=== PATIENT | female | born 1965 | race Caucasian/White ===

== ENCOUNTER 2020-04-06 12:50 | Emergency (ER) | payer BC, SELFPAY ==
[2020-04-06 12:50] VITALS: BP 139/77; PULSE 53; RESP 14; TEMP 37.3; O2SAT 96; BMI 33.0
[2020-04-06 13:07] LABS: Color,Urine Dark Yellow (Yellow)
[2020-04-06 13:08] LABS: Apearance,Urine Clear (Clear); Bilirubin,Urine 1+ (Negative); Blood, Urine Trace (Negative); Glucose,Urine (UA) 100 (Negative); Ketones,Urine TRACE (Negative); Protein,Urine 1+ (Negative); Specific Gravity, Urine >= 1.030 (1.005-1.030); UTC Leukocyte Esterase,Urine 1+ (Negative); UTC Nitrate,Urine Negative (Negative); Urobilinogen,Urine 0.2 EU/dl (0.2)
--- NOTE | 2020-04-06 13:08 | HMH.EDUTC ---
[facility] Disposition Condition on Discharge: Good <Maksim Pena - Last Filed: 04/06/20 13:08> <Elieser Zhao - Last Filed: 04/06/20 15:42> Clinical Impression: Abdominal pain Qualifiers: Abdominal location: left upper quadrant Qualified Code(s): R10.12 - Left upper quadrant pain Disposition: Still a Patient Referrals: Tommy Gil MD [Primary Care Provider] - Medical Decision Making - Kali Inquiry Pt receiving controlled substance: No <Maksim Pena - Last Filed: 04/06/20 13:08> - Lab Data Result diagrams: 04/06/20 13:15 04/06/20 13:15 <Elieser Zhao - Last Filed: 04/06/20 15:42> Vital Signs: 04/06/20 12:50 04/06/20 13:16 04/06/20 13:50 Temperature 99.1 F 98.7 F Temperature Source Oral Oral Pulse Rate [Right Brachial] 53 L 67 51 L Respiratory Rate 14 16 18 Blood Pressure [Right Arm] 139/77 133/72 126/76 Blood Pressure Mean [Right Arm] 97 92 92 Blood Pressure Source [Right Arm] Automatic Cuff Automatic Cuff Blood Pressure Position [Right Arm] Sitting Sitting Sitting 02 Sat by Pulse Oximetry 96 98 98 Oxygen Delivery Method Room Air Room Air Room Air 04/06/20 14:46 Temperature Temperature Source Pulse Rate [Right Brachial] 51 L Respiratory Rate 18 Blood Pressure [Right Arm] 133/85 Blood Pressure Mean [Right Arm] 101 Blood Pressure Source [Right Arm] Blood Pressure Position [Right Arm] 02 Sat by Pulse Oximetry 98 Oxygen Delivery Method - Lab Data Lab Results 04/06/20 13:01: Urine Color Dark yellow, Urine Appearance Clear, Urine pH 5.0, Ur Specific [place] >= 1.030, Urine Protein 1+, Urine Glucose (UA) 100, Urine Ketones Trace, Urine Blood Trace, Urine Nitrate Negative, Urine Bilirubin 1+ A, Urine Urobilinogen 0.2, Ur Leukocyte Esterase 1+ A 04/06/20 13:15: WBC 9.3, RBC 5.21, Hgb 15.5, Hct 47.0, MCV 90.3, MCH 29.8, MCHC 33.1, RDW 13.7, Plt Count 194, MPV 7.9, Neut % (Auto) 79.9, Lymph % (Auto) 14.0, [place] % (Auto) 4.0, Eos % (Auto) 1.5, Baso % (Auto) 0.6, Neut # (Auto) 7.5, Lymph # (Auto) 1.3, [place] # (Auto) 0.4, Eos # (Auto) 0.1, Baso # (Auto) 0.1 04/06/20 13:15: Sodium 142, Potassium 3.9, Chloride 107, Carbon Dioxide 28, Anion Gap 10.9, BUN 11, Creatinine 0.80, Estimated Creat Clear 126, Estimated GFR 75, Est GFR ( Amer) 91, Glucose 126 H, Calcium 10.1, Total Bilirubin 0.6, AST 61 H, ALT 62, Alkaline Phosphatase 91, C-Reactive Protein 6.3 H, Total Protein 7.6, Albumin 4.6, Globulin 3.0, Albumin/Globulin Ratio 1.5 04/06/20 13:15: ESR 10 04/06/20 13:15: Amylase 59, Lipase 71 Orders (Tests/Meds): ED MEDICATIONS Discontinued Medications Generic Name Dose Route Start Last Admin Trade Name Freq PRN Reason Stop Dose Admin Iopamidol 75 ml 04/06/20 14:06 04/06/20 14:07 Iopamidol-370 (76%);100ml Bottle IV 04/06/20 14:07 75 ml ONCE ONE Administration Sodium Chloride 10 ml 04/06/20 14:06 04/06/20 14:07 Sodium Chloride 0.9% 10ml Syr (Rad Only) IV 04/06/20 14:07 10 ml ONCE ONE Administration ORDERS Category Date Time Status CT abdomen pelvis w con Stat Cat Scan 04/06/20 13:28 Taken XR chest portable Stat Exams 04/06/20 13:27 Taken Lactic Acid Stat Lab 04/06/20 15:10 Received [facility] HPI - General Mode of Arrival: Ambulatory Source of Information: Patient, Spouse Limitations: No Limitations Description of Symptoms (Recalled from Triage Doc. by RN): PATIENT C/O LUQ PAIN THAT BEGAN LAST NIGHT. EMESIS X 1 THIS MORNING. SHE STATES THE PAIN IS BETTER WHEN SHE STANDS AND DOES NOT RADIATE. DENIES FEVER. RATES PAIN 5/10 HEENT Symptoms (Recalled from RN notes): No Resp Symptoms (Recalled from RN notes): No Skin Symptoms (Recalled from RN notes): No MS Symptoms (Recalled from RN notes): No Functional Status (Recalled from RN notes): WNL - History of Present Illness Provider Complaint: 54 yr old female presents for left upper quad pain with vomiting that started this am when she got out of bed. pt states pain is worse with sitting. pt s
--- NOTE | 2020-04-06 13:13 | PC.NURSE ---
PATIENT SENT TO ER PER YUSRA MENARD APRN FOR FURTHER EVALUATION FOR ABDOMINAL PAIN. REPORT GIVEN TO Aarti BOWLING RN
[2020-04-06 13:16] VITALS: BP 133/72; PULSE 67; RESP 16; TEMP 37.1; O2SAT 98; BMI 34.0
--- NOTE | 2020-04-06 13:27 | XR_ITS ---
PROCEDURE: XR CHEST PORTABLE CLINICAL HISTORY: PAIN Left lower chest pain COMPARISON: No exams were available for comparison FINDINGS: The cardiomediastinal silhouette and pulmonary vascularity are within normal limits. The lungs are clear without infiltrates, suspicious nodules, or pleural effusions. No acute bony abnormalities. IMPRESSION: No acute findings. Dictated by: Abilio Kuhn MD 04/07/2020 07:35 Abilio Kuhn MD in [place] 04/07/2020 07:35
--- NOTE | 2020-04-06 13:28 | CT_ITS ---
PROCEDURE: CT ABDOMEN PELVIS W CON CLINICAL INDICATION: ABD PAIN Left upper quadrant abdominal pain with vomiting COMPARISON: No exams were available for comparison TECHNIQUE: IV Contrast: 75ML Isovue 370 Oral Contrast None Axial images obtained with sagittal and coronal reformats. All CT scans at the facility use one or more dose reduction, viz: automated exposure control, ma/kV adjustment per patient size (including targeted exams where dose is matched to indication, i.e. head), or iterative reconstruction technique. FINDINGS: LOWER THORAX: No acute finding ABDOMEN & PELVIS: Mild fatty liver infiltration. Cholecystectomy. The spleen, adrenal glands, pancreas and kidneys have an unremarkable appearance. No intestinal obstruction or free air. There is a supraumbilical hernia. This is slightly eccentric toward the right with hernia defect measuring 2.9 cm. Hernia does contain omentum and fat with some mild stranding of the fat. Cannot exclude incarceration. A small umbilical hernia is also noted. No evidence of appendicitis. There is colonic diverticulosis but no evidence of diverticulitis. No acute bony findings. IMPRESSION: Supraumbilical hernia containing omental tissue and fat with some minimal stranding of the omental tissue within the hernia sac which could be seen with incarceration. Small umbilical hernia. Otherwise negative Dictated by: Abilio Kuhn MD 04/07/2020 09:33 Abilio Kuhn MD in [place] 04/07/2020 09:33
[2020-04-06 13:34] LABS: Basophils # 0.1 K/mm3 (0-0.2); Basophils % 0.6 % (0.1-2.0); Eosinophils # 0.1 K/mm3 (0.0-0.4); Eosinophils % 1.5 % (0.1-12.0); Hemoglobin 15.5 g/dL (12.2-16.2); Lymphocytes # 1.3 K/mm3 (0.7-4.5); Mean Corpuscular HGB Conc 33.1 g/dL (31.8-35.4); Mean Corpuscular Hemoglobin 29.8 pg (27.0-31.2); Mean Corpuscular Volume 90.3 fl (81-99); Mean Platelet Volume 7.9 fl (7.4-10.4); Monocytes # 0.4 K/mm3 (0.1-1.0); Neutrophils # 7.5 K/mm3 (1.8-7.8); Neutrophils % 79.9 % (37.0-80.0); Platelet Count 194 K/mm3 (142-424); Red Blood Count 5.21 M/mm3 (4.20-5.40); Red Cell Distribution Width 13.7 % (11.5-17.5); White Blood Count 9.3 K/mm3 (4.8-10.8)
[2020-04-06 13:37] LABS: Alanine Aminotransferase 62 U/L (12-78); Albumin Level 4.6 g/dl (3.5-5.0); Albumin/Globulin Ratio 1.5 (1.1-1.8); Alkaline Phosphatase 91 U/L (38-126); Anion Gap 10.9 mEq/L (5-15); Aspartate Amino Transferase 61 U/L (14-36); Bilirubin,Total 0.6 mg/dl (0.2-1.3); Blood Urea Nitrogen 11 mg/dl (7-17); Calcium 10.1 mg/dl (8.4-10.2); Carbon Dioxide 28 mmol/L (22.0-30.0); Chloride 107 mmol/L (98-107); Creatinine Clearance Estimated 126 mL/min (50-200); Estimated Glomerular Filt Rate 75 ml/min (>60); GFR (African American) 91 ML/MIN (>60); Glucose 126 mg/dl (74-100); Potassium 3.9 mmoL/L (3.5-5.1); Sodium 142 mmol/L (136-145); Total Protein,Serum 7.6 g/dl (6.3-8.2)
[2020-04-06 13:42] LABS: C-Reactive Protein 6.3 mg/L (0-4)
--- NOTE | 2020-04-06 13:43 | ECG_ITS ---
APPROVED REPORT Exam: Resting ECG HR:51 bpm ECG Measurements Heart Rate 51 AXES OR 150 P 34 QRSd 98 QRS -6 QT 466 T 28 QTc 429 Conclusion Sinus bradycardia Nonspecific ST abnormality Abnormal ECG Electronically signed by : Tommy Mehta, 04/08/2020 06:45:43
[2020-04-06 13:44] LABS: Amylase 59 U/L (30-110); Lipase 71 U/L (23-300)
[2020-04-06 13:50] VITALS: BP 126/76; PULSE 51; RESP 18; O2SAT 98
--- NOTE | 2020-04-06 14:01 | PC.NURSE ---
PT STILL IN CT
[2020-04-06 14:03] LABS: Erythrocyte Sedimentation Rate 10 mm/hr (0-30)
[2020-04-06 14:46] VITALS: BP 133/85; PULSE 51; RESP 18; O2SAT 98
--- NOTE | 2020-04-06 14:47 | PC.NURSE ---
Dr Zhao spoke with JEREMIAH
--- NOTE | 2020-04-06 14:52 | PC.NURSE ---
LAB AWARE OF LACTIC
--- NOTE | 2020-04-06 16:03 | HMH.EDNVD ---
ED Disposition Clinical Impression: Supraumbilical hernia without gangrene and without obstruction Abdominal pain Qualifiers: Abdominal location: left upper quadrant Qualified Code(s): R10.12 - Left upper quadrant pain Disposition: Home, Self-Care Condition on Discharge: Good Instructions: DI for Acute Abdominal Pain Additional Instructions: recheck if any problems and call dr dyson and pcp for follow up Prescriptions: Ketorolac Tromethamine [Toradol 10mg tablet] 10 mg PO Q6H 3 Days #10 tab Transmission Status: Pending to [facility] Referrals: Tommy Gil MD [Primary Care Provider] - Carter Dyson MD [Staff Physician] - - Critical Care Critical Care Time: No Attestation: On 04/06/20, the high probability of a clinically significant, sudden or life threatening deterioration of the following system(s) required my full and direct attention, intervention and personal management. The time I documented below is in addition to time spent performing reported procedures but includes the following listed in this critical care notation. Medical Decision Making - Medical Records Medical records reviewed: Yes: I reviewed the patient's medical records. - Kali Inquiry Pt receiving controlled substance: No Vital Signs: 04/06/20 12:50 04/06/20 13:16 04/06/20 13:50 Temperature 99.1 F 98.7 F Temperature Source Oral Oral Pulse Rate [Right Brachial] 53 L 67 51 L Respiratory Rate 14 16 18 Blood Pressure [Right Arm] 139/77 133/72 126/76 Blood Pressure Mean [Right Arm] 97 92 92 Blood Pressure Source [Right Arm] Automatic Cuff Automatic Cuff Blood Pressure Position [Right Arm] Sitting Sitting Sitting 02 Sat by Pulse Oximetry 96 98 98 Oxygen Delivery Method Room Air Room Air Room Air 04/06/20 14:46 Temperature Temperature Source Pulse Rate [Right Brachial] 51 L Respiratory Rate 18 Blood Pressure [Right Arm] 133/85 Blood Pressure Mean [Right Arm] 101 Blood Pressure Source [Right Arm] Blood Pressure Position [Right Arm] 02 Sat by Pulse Oximetry 98 Oxygen Delivery Method - Lab Data Lab results reviewed: Yes: I reviewed the patient's lab results. Lab Results 04/06/20 13:01: Urine Color Dark yellow, Urine Appearance Clear, Urine pH 5.0, Ur Specific [place] >= 1.030, Urine Protein 1+, Urine Glucose (UA) 100, Urine Ketones Trace, Urine Blood Trace, Urine Nitrate Negative, Urine Bilirubin 1+ A, Urine Urobilinogen 0.2, Ur Leukocyte Esterase 1+ A 04/06/20 13:15: WBC 9.3, RBC 5.21, Hgb 15.5, Hct 47.0, MCV 90.3, MCH 29.8, MCHC 33.1, RDW 13.7, Plt Count 194, MPV 7.9, Neut % (Auto) 79.9, Lymph % (Auto) 14.0, [place] % (Auto) 4.0, Eos % (Auto) 1.5, Baso % (Auto) 0.6, Neut # (Auto) 7.5, Lymph # (Auto) 1.3, [place] # (Auto) 0.4, Eos # (Auto) 0.1, Baso # (Auto) 0.1 04/06/20 13:15: Sodium 142, Potassium 3.9, Chloride 107, Carbon Dioxide 28, Anion Gap 10.9, BUN 11, Creatinine 0.80, Estimated Creat Clear 126, Estimated GFR 75, Est GFR ( Amer) 91, Glucose 126 H, Calcium 10.1, Total Bilirubin 0.6, AST 61 H, ALT 62, Alkaline Phosphatase 91, C-Reactive Protein 6.3 H, Total Protein 7.6, Albumin 4.6, Globulin 3.0, Albumin/Globulin Ratio 1.5 04/06/20 13:15: ESR 10 04/06/20 13:15: Amylase 59, Lipase 71 04/06/20 15:10: Lactate 1.0 Result diagrams: 04/06/20 13:15 04/06/20 13:15 Orders (Tests/Meds): ED MEDICATIONS Discontinued Medications Generic Name Dose Route Start Last Admin Trade Name Radq PRN Reason Stop Dose Admin Iopamidol 75 ml 04/06/20 14:06 04/06/20 14:07 Iopamidol-370 (76%);100ml Bottle IV 04/06/20 14:07 75 ml ONCE ONE Administration Ketorolac Tromethamine 30 mg 04/06/20 15:53 04/06/20 15:54 Ketorolac 30mg/Ml Vial IV 04/06/20 15:54 30 mg ONCE ONE Administration Sodium Chloride 10 ml 04/06/20 14:06 04/06/20 14:07 Sodium Chloride 0.9% 10ml Syr (Rad Only) IV 04/06/20 14:07 10 ml ONCE ONE Administration ORDERS Category Date Time Status CT abdom
[2020-04-06 16:09] VITALS: BP 136/85; PULSE 54; RESP 18; O2SAT 100
[2020-04-06 16:36] VITALS: BP 136/85; PULSE 64; RESP 16; TEMP 36.9; O2SAT 98
== END 2020-04-06 16:42 | disposition home or self-care (01) ==
LOC: UTC 12:54 → ER 13:12
PROVIDERS: Nurse Practitioner Family; Emergency Provider Emergency Medicine; PCP Family Medicine
DX: K43.9 Ventral hernia without obstruction or gangrene (principal)
CPT/HCPCS: 36415; 71045; 74177; 80053; 81003; 82150; 83605; 83690; 85025; 85651; 86140; 93005; 96374; 99283; Q9967

== ENCOUNTER → 2020-05-13 14:35 | Outpatient (CLI) | payer BC, SELFPAY ==
[2020-05-13 15:07] LABS: Basophils # 0.1 K/mm3 (0-0.2); Basophils % 0.8 % (0.1-2.0); Eosinophils # 0.2 K/mm3 (0.0-0.4); Eosinophils % 3.3 % (0.1-12.0); Hematocrit 46.5 % (37.0-47.0); Hemoglobin 15.1 g/dL (12.2-16.2); Lymphocytes % 31.2 % (10-50); Mean Corpuscular HGB Conc 32.5 g/dL (31.8-35.4); Mean Corpuscular Hemoglobin 29.5 pg (27.0-31.2); Mean Corpuscular Volume 90.8 fl (81-99); Mean Platelet Volume 7.8 fl (7.4-10.4); Monocytes # 0.3 K/mm3 (0.1-1.0); Monocytes % 4.7 % (1.7-9.3); Neutrophils # 3.9 K/mm3 (1.8-7.8); Neutrophils % 60.1 % (37.0-80.0); Platelet Count 182 K/mm3 (142-424); Red Blood Count 5.12 M/mm3 (4.20-5.40); Red Cell Distribution Width 13.9 % (11.5-17.5); White Blood Count 6.5 K/mm3 (4.8-10.8)
[2020-05-13 16:12] LABS: Chloride 107 mmol/L (98-107)
[2020-05-13 16:13] LABS: Potassium 4.3 mmoL/L (3.5-5.1); Sodium 142 mmol/L (136-145)
[2020-05-13 16:15] LABS: Blood Urea Nitrogen 13 mg/dl (7-17); Estimated Glomerular Filt Rate 88 ml/min (>60); GFR (African American) 106 ML/MIN (>60)
[2020-05-13 16:16] LABS: Anion Gap 10.3 mEq/L (5-15); Calcium 9.8 mg/dl (8.4-10.2); Carbon Dioxide 29 mmol/L (22.0-30.0); Glucose 102 mg/dl (74-100)
[2020-05-13 17:04] LABS: Coronavirus 19 IgG Antibody Negative (Negative)
[2020-05-13 17:05] LABS: Coronavirus 19 IgM Antibody Negative (Negative)
== END ==
PROVIDERS: Visit Provider Surgery
DX: Z01.812 Encounter for preprocedural laboratory examination (principal); Z20.822 Contact with and (suspected) exposure to COVID-19; K43.9 Ventral hernia without obstruction or gangrene
CPT/HCPCS: 36415; 80048; 85025; 86328

== ENCOUNTER 2020-05-14 06:02 | Day surgery (SDC) | payer BC, SELFPAY ==
[2020-05-10 09:50] VITALS: BMI 32.3
[2020-05-14] VITALS (12 sets, daily range): BP systolic 110–129; BP diastolic 65–77; PULSE 47–72; RESP 18–20; TEMP 36.3–43; O2SAT 92–98
--- NOTE | 2020-05-14 07:00 | HMH.ANESCL ---
[facility] Anesthesia Checklist - Patient Identification Patient Identification: Arm Band - Structural Data Admitted From: Home Planned Operative Procedure/s: Lap. verntral hernia repair Consent for Planned Operative Procedure(s) Verified: Yes - NPO Status Verified Time NPO: 00:00 - Additional verifications Anesthesia Reactions: No Hx Blood Transfusions: No Blood Transfusion Reaction: No - Airway Assessment C-Spine Mobility Assessed: Yes TMJ Mobility Assessed: Yes Dentition: Good Dentition - Neurological Assessment Level of Consciousness: Awake, Alert Hx Seizures: No Numbness or tingling in extremities: No - Anesthesia Plan Anesthesia Risk discussed: Yes Anesthesia Plan: Verified ASA Class: II Anesthesia Type: General [facility] History I have reviewed the patient's past medical history: Yes Medical History: Denies:: Cancer, Diabetes Mellitus Type 1, Diabetes Mellitus Type 2, Internal Pacemaker, Lung Disease, MRSA, Seizures *Have you ever received a pneumonia vaccine?: No *Have you received a flu vaccine this season?: No Other Medical History: Denies: Blood Transfusion Reaction Anesthesia experience/problems:: None Other Surgeries: Yes: No Previous Surgery, Cholecystectomy, Colonoscopy, Tubal Ligation. No: Pacemaker Amputation: No - *Social History Last grade of school completed: Some college Smoking Status: Never smoker Alcohol Intake: never Alcohol Intake Frequency:: holidays/special occasions only Substance Use Type: denies use *Occupational Status:: employed Household Members: spouse *Travel in the last 8 weeks: None Family Hx:: Cancer, Heart Attack
--- NOTE | 2020-05-14 09:18 | HMH.ANESI ---
[facility] Anesthesia Record Part I Intake, IV Amount: 600 Estimated blood loss (mL): 50 Urine output (mL): 200 Blood Pressure: 110/68 SaO2: 92 Pulse Rate: 71 Respiratory Rate: 20 Temperature: 99.8 F Patient is:: Drowsy, Oral/Nasal airway Stable to PACU at:: 09:15
--- NOTE | 2020-05-14 09:18 | HMH.OPNOTE ---
Date of procedure: 05/14/20 Pre-op Diagnosis:: Epigastric ventral hernia, umbilical hernia Post-op Diagnosis:: Same Procedure performed:: Laparoscopic repair of epigastric ventral hernia and laparoscopic repair of umbilical hernia with placement of 15.2 cm circular Bard ventral light mesh for the epigastric ventral hernia and 11.4 cm circular Bard ventral light mesh for the umbilical hernia. Surgeon:: Carter Dyson MD CONSTRUCTION ECONOMIST:: Other Anesthesia: GETA Estimated blood loss (mL): 15 Clinical Note:: Patient is a 54-year-old female referred from the emergency department for symptomatic ventral hernia. She had recently presented with upper abdominal and left-sided pain. This was unrelenting. She had intermittently had symptoms similar to this in the past but they have been temporary and fleeting. Evaluation in the emergency department included CT scan which revealed findings of supraumbilical hernia containing omentum with a defect measuring 2.9 cm. She also has a very small hernia at her umbilicus. She has previously undergone prior open cholecystectomy and also had tubal ligation. He does have some ongoing symptoms of mostly left upper abdominal pain. Operative findings:: She had an epigastric incisional hernia likely from previous open cholecystectomy. There was herniated fatty tissues including falciform ligament. She had a tiny umbilical hernia with a defect measuring about 12 mm with some herniated fatty tissues. Operative note:: Patient was taken to the operating room. She was positioned in a supine position. General anesthesia was induced via endotracheal tube. Abdomen was prepped and draped in the standard surgical fashion. Through a left subcostal incision optical trocar, 5 mm, was inserted carefully into the peritoneal cavity. CO2 pneumoperitoneum was achieved to 15 mmHg. Abdominal surveillance was carried out. Ultimately additional 5 mm trocar was inserted in the left lower and right lower quadrant with a 12 mm trocar in the right upper abdomen. Laparoscopic surveillance was carried out and she had some omental adhesions in the left upper quadrant and epigastric area. As these were taken down the hernia defect was identified in the left upper abdomen near the midline. This was the site of her pain and discomfort. This is likely secondary to previous open cholecystectomy. Dissection was carried down using Metzenbaum dissection with some use of SRIRAM ultrasonic harmonic kaushik. Ultrasonic harmonic kaushik were used to dissected the falciform ligament cranially to allow for mesh placement. Once the defect was fully cleaned free it was marked with a skin marker marking its boundaries. Overall defect measured about 3 cm but there was some laxity of the fascia surrounding this. Therefore for good fascial overlap and mesh coverage a circular 15.2 cm Bard ventral light mesh was rolled and inserted into the peritoneal cavity. It was oriented intracorporeally. Through a 1 mm incision centrally over the mesh the positioning system tubing was brought through the anterior abdominal wall and the balloon positioning system was inflated. Mesh was then secured around its periphery with the OPTi fix device. The balloon positioning system was removed. Several tacks were placed more medially to help eliminate space of the hernia. Repair appeared adequate. She did have a small separate umbilical hernia. There was some herniated fatty tissues. These were able to be reduced and dissected free from the hernia defect. The hernia defect was rather small measuring approximately 12 mm estimate. A 11.4 cm circular Bard ventral light mesh was then once again rolled and inserted into the peritoneal cavity. Through a tiny 1 mm incision at the umbilicus the balloon insufflation tubing was brought through the anterior abdominal wall and the balloon was inflated. Mesh was secured around its periphery with the OPTi fix device. Balloon positioning sy
[2020-05-14 09:24] LABS: Microscopic,Cath URINE MICROSCOPIC (MICROSCOPIC)
[2020-05-14 09:25] LABS: Appearance,Urine/Cath CLEAR (Clear); Bilirubin,Cath Negative (Negative); Blood, Urine/Cath Negative (Negative); Color,Urine/Cath YELLOW (Yellow); Glucose,Urine/Cath (UA) Negative (Negative); Ketones,Urine/Cath Negative (Negative); Leukocyte Esterase,Cath Negative (Negative); Nitrate,Cath Negative (Negative); Protein,Urine/Cath Negative (Negative); Specific Gravity, Urine/Cath 1.025 (1.005-1.030); Urobilinogen,Cath 0.2 EU/dl (0.2)
[2020-05-14 10:00] LABS: RBC,Urine/Cath Occasional # /hpf (0-3); Squamous Epithelial Ur./Cath Occasional #/hpf (0-5); WBC,Urine/Cath Occasional #/hpf (0-3)
--- NOTE | 2020-05-14 12:47 | HMH.ANESII ---
[facility] Anesthesia Record Part II Discharge Time: 09:55 Destination: Surgical Day Care (OP Surgery) PACU nurse assessment reviewed?: Yes Patient Condition:: Good Anesthesia Complications:: None Swallowing reflex intact?: Yes Cyanosis?: No Blood Pressure: 127/76 Pulse Rate: 58 Temperature: 99.8 F Mental Status: Alert & Oriented Pain level:: 2 Nausea and/or vomitting:: None Intake, IV Amount: 600
== END 2020-05-14 10:30 | disposition home or self-care (01) ==
PROVIDERS: PCP Family Medicine; Visit Provider Surgery
PROC: 0WQF4ZZ Repair Abdominal Wall, Percutaneous Endoscopic Approach (ICD-10-PCS; CPT 49652; principal; 2020-05-14 07:30)
DX: K43.9 Ventral hernia without obstruction or gangrene (principal); K42.9 Umbilical hernia without obstruction or gangrene; Z90.49 Acquired absence of other specified parts of digestive tract; Z98.51 Tubal ligation status; K66.0 Peritoneal adhesions (postprocedural) (postinfection)
CPT/HCPCS: 49652; 81001; 96374; C1781; J0131; J2405

== ENCOUNTER → 2021-02-12 10:37 | Outpatient (CLI) | payer BC, SELFPAY | PROVIDERS: PCP Family Medicine; Visit Provider Nurse Practitioner | DX: Z20.822 Contact with and (suspected) exposure to COVID-19 (principal) | CPT/HCPCS: C9803; U0003; U0005 ==

== ENCOUNTER → 2022-11-26 10:14 | Outpatient (CLI) | payer BC, SELFPAY ==
--- NOTE | 2022-11-26 10:19 | XR_ITS ---
FINAL REPORT CLINICAL HISTORY: LT SHOULDER PAIN FINDINGS: 3 views of the left shoulder were obtained. There is no acute fracture or dislocation. There is mild AC joint degenerative change. There are no soft tissue abnormalities. IMPRESSION: No acute process. Reviewed, Interpreted and Dictated by Carter Campo III, MD Transcribed by Robert Garcia Authenticated and [facility]
== END ==
PROVIDERS: PCP Family Medicine; Visit Provider Nurse Practitioner Family
DX: M25.512 Pain in left shoulder (principal)
CPT/HCPCS: 73030